=== PATIENT | male | born 1990 | race Caucasian/White ===

== ENCOUNTER → 2017-04-27 | Outpatient (CLI) | payer BC ==
--- NOTE | 2017-04-27 10:27 | US ---
Limited abdominal ultrasound Indication: Abdominal pain, nausea. Comparison: None Technique: Sonographic images of the abdomen were obtained per protocol. Findings: There is no cholelithiasis, gallbladder distention, wall thickening, or pericholecystic fl uid. No biliary dilation; the common duct measures 3 mm in diameter. The visualized liver and right kidney are unremarkable. The pancreas was not visualized. Impression: Unremarkable right upper quadrant ultrasound. Reported By:
== END ==
LOC: RAD 09:54
PROVIDERS: ATTEND Internal Medicine
DX: R10.84 Generalized abdominal pain (principal)
CPT/HCPCS: 76705

== ENCOUNTER → 2018-02-22 | Outpatient (CLI) | payer BC ==
[2018-02-08 13:12] VITALS: BP 140/71
[~2018-02-22] MED LIST: NS 100 ML IV 100 ML IV ONE
--- NOTE | 2018-02-22 11:02 | CT ---
HISTORY: Left chest mass Study: CT chest with contrast Comparison: None Technique: Axial post-contrast images with coronal and sagittal reformats. Dose reduction procedures were used with mA/kv adjusted for body size. Findings: Examination of the mediastinum demonstrated no evidence for mediastinal masses, enlarged lymphadenopa thy, or enlarged hilar adenopathy. No pleural effusions are identified. No chest wall or axillary abn ormality is identified. Specifically there is no chest wall abnormality underlying the area in the le ft anterior chest marked with a BB. It should be noted of course that a lipoma may not be detectable. Examination of the lung hong demonstrated no significant nodules, masses, alveolar infiltrates, ar eas of consolidation, peribronchial thickening or bronchiectasis. IMPRESSION: No definite evidence for left anterior chest wall mass Lungs clear Reported By:
== END ==
LOC: RAD 09:45
PROVIDERS: ATTEND Internal Medicine
DX: R22.2 Localized swelling, mass and lump, trunk (principal)
CPT/HCPCS: 71260; A4222